=== PATIENT | female | born 1985 | race Caucasian/White ===

== ENCOUNTER 2023-08-01 07:55 | Outpatient (CLI) | payer BC ==
--- NOTE | 2023-08-02 09:14 | Mammography Report ---
BILATERAL DIGITAL SCREENING MAMMOGRAM 3D/2D: 08/01/2023 CLINICAL: Baseline exam. Routine screening. No prior exams were available for comparison. Both breasts are heterogeneously dense, which may obscure small masses (category c / 51-75% glandular tissue). No significant masses, calcifications, or other findings are seen in either breast. IMPRESSION: NEGATIVE There is no mammographic evidence of malignancy. A 4 year screening mammogram is recommended. Lifeti me risk is significantly increased. Consider supplemental MRI screening. Based on Tyrer-Cuzick model (a risk assessment model), the patient's lifetime risk is 83.8% and her 1 0 year risk is 25.1%. If a patient has an elevated risk, a more comprehensive evaluation should be co nsidered and/or a referral to a genetic counselor. The [employer], [employer], and NCCN Guidelines advise the consideration of Breast MRI as an adjunct to screening mammo graphy in patients whose "Lifetime risk to develop breast cancer" is 20% or higher. This exam was interpreted at Station ID: [id number]. NOTE: For mammograms, a report in lay terms will be sent to the patient. Approximately 15% of breast malignancies will not be visualized mammographically. In the management of a palpable breast mass, a negative mammogram must not discourage biopsy of a clinically suspicious lesion. Electronically Signed By: Jason Rivero M.D. lc/:08/01/2023 09:14:13 letter sent: No_Letter ACR BI-RADS Category 1: Negative 3341F PARENCHYMAL PATTERN: (D) - The breast(s) demonstrate(s) heterogeneously dense fibroglandular luis rodriguez. BI-RADS CATEGORY: (1) - 1 Mammogram [id number] 4 year screening LATERALITY: (B)
== END 2023-08-01 07:56 | disposition home or self-care (01) ==
LOC: DI.N 07:55
PROVIDERS: ATTEND Nurse Practitioner
DX: Z12.31 Encounter for screening mammogram for malignant neoplasm of breast (principal); Z84.81 Family history of carrier of genetic disease; Z80.3 Family history of malignant neoplasm of breast; R92.333 Mammographic heterogeneous density, bilateral breasts

== ENCOUNTER 2023-08-01 07:59 | Outpatient (CLI) | payer BC ==
[2023-08-01 11:52] LABS: BASOPHILS # (AUTO) 0.1 10^3/uL (0.0-0.1); BASOPHILS % (AUTO) 1.5 %; EOSINOPHILS # (AUTO) 0.4 10^3/uL (0.0-0.7); EOSINOPHILS % (AUTO) 8.2 %; HCT - HEMATOCRIT 45.9 % (37.0-47.0); HGB - HEMOGLOBIN 15.4 g/dL (12.0-16.0); LYMPHOCYTES # (AUTO) 1.3 10^3/uL (1.5-3.5); MEAN CORPUSCULAR HEMOGLOBIN 29.2 pg (27.0-31.0); MEAN CORPUSCULAR HGB CONC 33.6 g/dL (32.0-36.0); MEAN CORPUSCULAR VOLUME 86.9 fL (81.0-99.0); MEAN PLATELET VOLUME 11.1 fL (7.9-10.8); MONOCYTES # (AUTO) 0.3 10^3/uL (0.0-1.0); MONOCYTES % (AUTO) 6.1 %; NEUTROPHILS # (AUTO) 2.7 10^3/uL (1.5-6.6); PLT - PLATELET COUNT 273 10^3/uL (130-450); RED BLOOD COUNT 5.28 10^6/uL (4.20-5.40); RED CELL DISTRIBUTION WIDTH 13.1 % (12.0-15.0); WHITE BLOOD COUNT 4.8 x10^3/uL (4.8-10.8)
[2023-08-01 12:38] LABS: ALBUMIN 4.6 g/dL (3.2-5.5); ALBUMIN/GLOBULIN RATIO 1.8 (1.0-2.2); BILIRUBIN,TOTAL 0.8 mg/dL (0.2-1.0); CALCIUM 9.3 mg/dL (8.5-10.3); CREATININE 0.8 mg/dL (0.6-1.3); POTASSIUM 3.7 mmol/L (3.5-4.5); TOTAL PROTEIN 7.1 g/dL (6.4-8.9)
[2023-08-01 12:40] LABS: THYROID STIMULATING HORMONE 1.44 uIU/mL (0.34-5.60)
== END 2023-08-01 08:00 | disposition home or self-care (01) ==
LOC: LAB.N 07:59
PROVIDERS: ATTEND Physician Assistant
DX: F41.8 Other specified anxiety disorders (principal); Z51.81 Encounter for therapeutic drug level monitoring; Z79.899 Other long term (current) drug therapy
CPT/HCPCS: 36415; 80053; 84443; 85025

== ENCOUNTER 2023-08-01 18:03 | Outpatient (CLI) | payer BC ==
--- NOTE | 2023-08-02 10:09 | Ultrasound Report ---
PROCEDURE: Pelvic w/Transvaginal INDICATIONS: PELVIC PAIN TECHNIQUE: Real-time scanning was performed of the pelvic organs, with image documentation. Additional endovagi nal scanning was necessary due to incomplete visualization of the adnexal and endometrial structures by transabdominal scanning. COMPARISON: None. FINDINGS: Uterus: Uterus is anteverted and normal in size at 6.7 x 2.8 x 3.8 cm. The myometrium is homogeneou s. The endometrium measures 7.4 mm in combined thickness. Ovaries: The right ovary measures 4.2 x 4.5 x 3.3 cm, with a calculated ovarian volume of 26.2 cc. C omplex thick-walled cyst versus mass measuring 3.0 x 2.9 x 3.0 cm. The left ovary measures 4.0 x 2.2 x 2.3 cm, with a calculated ovarian volume of 15 cc. Less than 12 follicles can be seen in each ovar y. No adnexal masses are seen. Other: No pathologic free abdominal or pelvic fluid. IMPRESSION: 1.Right ovary complex thick-walled cyst measuring 3.0 cm, ovarian mass is also a differential. Recomm end short-term follow-up ultrasound in 6-12 weeks to assess for stability or resolution. 2.The remainder of the pelvic ultrasound is within normal limits. Reviewed by: Silas Green MD on 08/02/2023 10:08 AM PST Approved by: Silas Green MD on 08/02/2023 10:08 AM PST Station ID: [id number]
== END 2023-08-01 18:04 | disposition home or self-care (01) ==
LOC: DI 18:03
PROVIDERS: ATTEND Nurse Practitioner
DX: R10.2 Pelvic and perineal pain (principal); Z51.81 Encounter for therapeutic drug level monitoring; F41.8 Other specified anxiety disorders
CPT/HCPCS: 36415; 80053; 84443; 85025

== ENCOUNTER 2023-08-06 07:44 | Outpatient (CLI) | payer BC ==
[2023-08-06] MEDS: ALBUTEROL 1 PUFF INH STA (09:25)
== END 2023-08-06 07:45 | disposition home or self-care (01) ==
LOC: RT 07:44
PROVIDERS: ATTEND Physician Assistant
DX: J45.909 Unspecified asthma, uncomplicated (principal); R06.02 Shortness of breath
CPT/HCPCS: 94060; 94729

== ENCOUNTER 2023-09-12 18:18 | Outpatient (CLI) | payer BC ==
--- NOTE | 2023-09-13 17:44 | Ultrasound Report ---
PROCEDURE: Pelvic Complete INDICATIONS: OVARIAN CYST TECHNIQUE: Transabdominal ultrasound of the pelvis was obtained. COMPARISON: 08/01/2023 FINDINGS: Uterine size: Uterus measures 7.0 x 3.3 x 4.4 cm, and is anteverted. Myometrium: The myometrium is homogeneous. Endometrium: The endometrium measures 7.8 mm in combined thickness. Right ovary: The right ovary measures 4.0 x 3.6 x 4.2 cm. Calculated ovarian volume 32 cc. Complex ovarian cyst measures 3.6 x 2.5 x 3.2 Left ovary: The left ovary measures 4.3 x 1.9 x 3.2 cm. Calculated ovarian volume 13.5 cc. Other: No pathologic free abdominal or pelvic fluid. IMPRESSION: Stable complex right ovarian cyst. Consider 6 month interval follow-up Reviewed by: Rufus Booker MD on 09/13/2023 4:43 PM TIFFANIE Approved by: Rufus Booker MD on 09/13/2023 4:43 PM TIFFANIE Station ID: [id number]
== END 2023-09-12 18:19 | disposition home or self-care (01) ==
LOC: DI 18:18
PROVIDERS: ATTEND Nurse Practitioner
DX: N83.291 Other ovarian cyst, right side (principal)